=== PATIENT | female | born 1945 | race Caucasian/White ===

== ENCOUNTER 2022-11-20 16:34 | Emergency (ER) | payer MEDICARE, SELFPAY ==
[2022-11-20 16:47] VITALS: BP 128/43; PULSE 67; RESP 18; TEMP 36.2; O2SAT 98
[2022-11-20 16:50] VITALS: BP 128/43; PULSE 67; RESP 18; TEMP 36.2; O2SAT 98
--- NOTE | 2022-11-20 17:05 | ED.GENADULT ---
HPI - General Adult General Chief complaint: Upper Respiratory Infection Stated complaint: Sore Throat Source: patient Mode of arrival: ambulatory Limitations: no limitations History of Present Illness HPI narrative: Patient presents for evaluation of sore throat since yesterday. She indicates she took her medication for the day and noted a very foul taste in her mouth shortly thereafter. She then developed a sore throat which has persisted since that time. She reports bilateral ear fullness. No fever, chills, nausea, vomiting, diarrhea, cough, shortness of breath. No recent sick contacts to her knowledge. She lives in [place] but traveled to this area yesterday. She does not smoke. She states she had a rash in the past with PCN but has tolerated amoxicillin in the past. Related Data Home Medications Medication Instructions Recorded Confirmed Lantus Solostar U-100 Insulin 11/20/22 Xyzal 11/20/22 apixaban 5 mg tablet (Eliquis) mg 11/20/22 atorvastatin 20 mg tablet mg 11/20/22 carvedilol 12.5 mg tablet mg 11/20/22 dapagliflozin 10 mg tablet mg 11/20/22 (Farxiga) dulaglutide 1.5 mg/0.5 mL mg subcut 11/20/22 subcutaneous pen injector ([facility]) hydrochlorothiazide 25 mg tablet mg 11/20/22 letrozole 2.5 mg tablet mg 11/20/22 metformin 1,000 mg tablet mg 11/20/22 montelukast 10 mg tablet mg 11/20/22 multivit with minerals-iron 18 tablet PO 11/20/22 mg-folic ac 400 mcg-vit K 25 mcg tablet (Adults Multivitamin) pantoprazole 40 mg tablet,delayed mg PO 11/20/22 release pioglitazone 15 mg tablet mg 11/20/22 sertraline 50 mg tablet mg 11/20/22 zolpidem 5 mg tablet mg 11/20/22 Allergies Allergy/AdvReac Type Severity Reaction Status Date / Time penicillin G Allergy Mild Unknown Verified 11/20/22 16:48 nitrofurantoin Allergy Unknown Unknown Verified 11/20/22 16:48 Penicillins Allergy Unknown Unknown Verified 11/20/22 16:48 Review of Systems Review of Systems: CONSTITUTIONAL: Denies fever, chills, or sweats. EYES: Denies visual changes, redness, or discharge. ENT: Reports sore throat. Reports recent foul taste in her mouth, now resolved. Reports bilateral ear fullness. Denies rhinorrhea, congestion, or otalgia. CARDIOVASCULAR: Denies chest pain, palpitations, or edema. RESPIRATORY: Denies cough or dyspnea. GASTROINTESTINAL: Denies abdominal pain, nausea, vomiting, or diarrhea. GENITOURINARY: Denies dysuria or hematuria. SKIN: Denies rash or itching. MUSCULOSKELETAL: Denies back pain, joint pain, or myalgia. NEUROLOGIC: Denies headache, numbness, dizziness, or weakness. PSYCHIATRIC: Denies anxiety or depression. [facility] Past Medical History Medical History Atrial fibrillation Diabetes Hypertension Saddle pulmonary embolus Surgical History Surgical History No pertinent past surgical history Family History Family History Other Diabetes mellitus Family history of arthritis Family history of cardiovascular disease Social History Social History Smoking status: Never smoker Alcohol intake: never Substance use: never Gender identity (if verbalized by the patient): Female Sexual Orientation (if Verbalized by the Patient): Straight or Heterosexual Spiritual care concerns: No Exam Narrative: GENERAL: Well-appearing, well-nourished, and in no acute distress. HEAD: Normocephalic, atraumatic. EYES: PERRLA and EOMI. ENT: Nares clear, no rhinorrhea or epistaxis. Mucous membranes moist. Posterior pharyngeal erythema without exudate. Uvula is midline.. Bilateral TMs pearly drake nonbulging NECK: Supple. No adenopathy or masses. No carotid bruits or JVD CHEST: Clear to auscultation. No respiratory distress. No wheezes rales or rho
== END 2022-11-20 17:07 | disposition home or self-care (01) ==
PROVIDERS: Emergency Provider Nurse Practitioner
DX: J02.9 Acute pharyngitis, unspecified (principal); I48.91 Unspecified atrial fibrillation; E11.9 Type 2 diabetes mellitus without complications; I10 Essential (primary) hypertension; Z86.711 Personal history of pulmonary embolism
CPT/HCPCS: 87081; 87880; 99213; G0463

== ENCOUNTER 2023-08-27 16:17 | Emergency (ER) | payer MEDICARE, SELFPAY ==
--- NOTE | ~2023-08-27 | XR_ITS ---
EXAMINATION: XR chest 2V Exam Date/Time: 08/27/2023 17:14 DENTAL SURGEON HISTORY: HX PNUEMONIA, COUGH X 4 DAYS Comparison: None. RESULT: Lines, tubes, and devices: None. Lungs and pleura: Senescent change, otherwise clear. Cardiomediastinal silhouette: Stable. Other: No acute osseous or upper abdominal finding. Prior left mastectomy. IMPRESSION: No acute cardiopulmonary process. Reviewed, dictated and finalized at location [facility]
[2023-08-27 16:44] VITALS: BP 142/58; PULSE 65; RESP 20; TEMP 36.8; O2SAT 99
--- NOTE | 2023-08-27 17:32 | ED.GENADULT ---
HPI - General Adult General Chief complaint: Upper Respiratory Infection Stated complaint: Sinus Source: patient Mode of arrival: ambulatory Limitations: no limitations History of Present Illness HPI narrative: Patient presents for evaluation of sick symptoms for last three days. She initially had some sinus congestion and thick green nasal drainage. She now reports a productive cough, shortness of breath and wheezing. No underlying history of COPD or asthma. Her daughter recently had similar symptoms. She is actually visiting family in the area but does have a home here also. She is a former smoker. She has tried dayquil and nyquil for her symptoms. She is anticoagulated with eliquis for PE and a fib. Related Data Home Medications Medication Instructions Recorded Confirmed Xyzal 11/20/22 apixaban 5 mg tablet (Eliquis) mg 11/20/22 atorvastatin 20 mg tablet mg 11/20/22 carvedilol 12.5 mg tablet mg 11/20/22 dulaglutide 1.5 mg/0.5 mL mg subcut 11/20/22 subcutaneous pen injector ([facility]) hydrochlorothiazide 25 mg tablet mg 11/20/22 letrozole 2.5 mg tablet mg 11/20/22 metformin 1,000 mg tablet mg 11/20/22 montelukast 10 mg tablet mg 11/20/22 multivit with minerals-iron 18 tablet PO 11/20/22 mg-folic ac 400 mcg-vit K 25 mcg tablet (Adults Multivitamin) pantoprazole 40 mg tablet,delayed mg PO 11/20/22 release pioglitazone 15 mg tablet mg 11/20/22 sertraline 50 mg tablet mg 11/20/22 zolpidem 5 mg tablet mg 11/20/22 Allergies Allergy/AdvReac Type Severity Reaction Status Date / Time penicillin G Allergy Mild Unknown Verified 08/27/23 16:22 nitrofurantoin Allergy Unknown Unknown Verified 08/27/23 16:22 Penicillins Allergy Unknown Unknown Verified 08/27/23 16:22 Review of Systems Review of Systems: CONSTITUTIONAL: Denies fever, chills, or sweats. EYES: Denies visual changes, redness, or discharge. ENT: Denies rhinorrhea, congestion, sore throat, or otalgia. CARDIOVASCULAR: Denies chest pain, palpitations, or edema. RESPIRATORY: Reports cough, mild SOB and wheezing GASTROINTESTINAL: Denies abdominal pain, nausea, vomiting, or diarrhea. GENITOURINARY: Denies dysuria or hematuria. SKIN: Denies rash or itching. MUSCULOSKELETAL: Denies back pain, joint pain, or myalgia. NEUROLOGIC: Denies headache, numbness, dizziness, or weakness. PSYCHIATRIC: Denies anxiety or depression. [facility] Past Medical History Medical History Atrial fibrillation Diabetes Hypertension Saddle pulmonary embolus Surgical History Surgical History No pertinent past surgical history Family History Family History Other Diabetes mellitus Family history of arthritis Family history of cardiovascular disease Social History Social History Smoking status: Former smoker Alcohol intake: never Substance use: never Living arrangements: with family Gender identity (if verbalized by the patient): Female Sexual Orientation (if Verbalized by the Patient): Straight or Heterosexual Spiritual care concerns: No Exam Narrative: GENERAL: Well-appearing, well-nourished, and in no acute distress. HEAD: Normocephalic, atraumatic. EYES: PERRLA and EOMI. ENT: Nares clear, no rhinorrhea or epistaxis. Mucous membranes moist. Oropharynx without tonsillar hypertrophy exudate or other lesions. Bilateral TMs pearly drake nonbulging NECK: Supple. No adenopathy or masses. No carotid bruits or JVD CHEST: Occasional cough on exam. Mild wheezing in right lung [place] anteriorly. HEART: Regular rate and rhythm. No murmur heard. Normal peripheral pulses. ABDOMEN: Soft, nontender, nondistended, normal active bowel sounds. EXTREMITIES: Normal range of motion. No edema. SKIN: Warm
[2023-08-27] MEDS: ALBUTEROL SULFATE NEB 2.5 MG/3 ML INH INHALATION (17:50)
[2023-08-27] MEDS: methylPREDNISolone SOD SUCC 125 MG VIAL IM (17:50)
[2023-08-27] MEDS: IPRATROPIUM BR 0.02% INH SOLN 0.5 MG/2.5 ML VIAL INHALATION (17:52)
[2023-08-27 18:45] VITALS: BP 156/62; RESP 20; O2SAT 98
== END 2023-08-27 18:45 | disposition home or self-care (01) ==
PROVIDERS: Emergency Provider Nurse Practitioner
DX: J32.9 Chronic sinusitis, unspecified (principal); R06.2 Wheezing; Z20.822 Contact with and (suspected) exposure to COVID-19; Z87.891 Personal history of nicotine dependence; I48.91 Unspecified atrial fibrillation; E11.9 Type 2 diabetes mellitus without complications; I10 Essential (primary) hypertension; Z86.711 Personal history of pulmonary embolism
CPT/HCPCS: 71046; 87426; 87804; 94640; 96372; 99213; C9803; G0463; J2930